=== PATIENT | male | born 1965 | race Caucasian/White ===

== ENCOUNTER 2017-11-27 14:55 | Emergency (ER) | payer OTHER, SELFPAY ==
[2017-11-27 15:07] VITALS: BP 137/79; PULSE 104; RESP 16; TEMP 37; O2SAT 96
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
[2017-11-27] MEDS: Acetaminophen 500 MG TAB 1000 MG PO (15:31)
[2017-11-27] MEDS: Ibuprofen 400 MG TAB PO (15:31)
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
[2017-11-27 16:35] VITALS: PULSE 80; RESP 16
== END 2017-11-27 16:20 | disposition home or self-care (01) ==
PROVIDERS: Emergency Provider Physician Assistant
DX: S43.102A Unspecified dislocation of left acromioclavicular joint, initial encounter (principal); V18.0XXA Pedal cycle driver injured in noncollision transport accident in nontraffic accident, initial encounter; Y93.55 Activity, bike riding
CPT/HCPCS: 99284; 73030; L3650